=== PATIENT | female | born 2005 | race Caucasian/White ===

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

== ENCOUNTER 2023-06-15 09:27 | Emergency (ER) | payer OTHER ==
[~2023-06-15] VITALS: Ht 182.9 cm; Wt 129.8 kg
[~2023-06-15 09:27] MED LIST changes: +ALBU2.5V10 NEB; -ALBU83IN NEB
[2023-06-15] MEDS ORDERED: SERT-141 PO (11:43)
[2023-06-15 12:31] VITALS: BP 153/76; TEMP 96.5; O2SAT 98
== END 2023-06-15 12:33 | disposition home or self-care (01) ==
LOC: M ED 09:27
DX: T43.221A Poisoning by selective serotonin reuptake inhibitors, accidental (unintentional), initial encounter (principal); R11.2 Nausea with vomiting, unspecified; F41.9 Anxiety disorder, unspecified; Z79.899 Other long term (current) drug therapy

== ENCOUNTER 2023-07-04 15:16 | Emergency (ER) | payer OTHER ==
[~2023-07-04] VITALS: Ht 182.9 cm; Wt 128.2 kg
[~2023-07-04 15:16] MED LIST changes: +SERT-141 PO
[2023-07-04 17:12] LABS: URINE PREG TEST NEGATIVE (NEGATIVE)
[2023-07-04 17:44] LABS: BASO # 0.1 10^3/uL (0.0-0.2); BASO % 0.5 % (0.0-1.0); EOS # 0.1 10^3/uL (0.0-0.5); EOS % 1.2 % (0.0-3.0); HEMATOCRIT 32.9 % (36.0-47.0); LYMPH # 3.2 10^3/uL (1.5-5.0); LYMPH % 31.5 % (24.0-44.0); MEAN CORPUSCULAR HEMOGLOBIN 18.8 pg (27.0-33.0); MEAN CORPUSCULAR HGB CONC 30.4 g/dl (32.0-36.5); MEAN CORPUSCULAR VOLUME 61.7 fl (80.0-96.0); MONO # 0.6 10^3/uL (0.0-0.8); MONO % 5.7 % (2.0-8.0); NEUTROPHILS # 6.2 10^3/uL (1.5-8.5); NEUTROPHILS % 60.8 % (36.0-66.0); PLATELET COUNT, AUTOMATED 343 10^3/uL (150-450); RED BLOOD COUNT 5.33 10^6/uL (4.00-5.40); WHITE BLOOD COUNT 10.1 10^3/uL (4.0-10.0)
[2023-07-04 18:09] LABS: LIPASE 36 U/L (12-53)
[2023-07-04 18:11] LABS: ALBUMIN 3.8 G/DL (3.2-5.2); ALKALINE PHOSPHATASE 49 U/L (46-116); ALT/SGPT 19 U/L (7.0-40); AST/SGOT < 8 U/L (<34); BILIRUBIN,DIRECT 0.3 MG/DL (<0.4); BILIRUBIN,TOTAL 0.8 MG/DL (0.3-1.2); TOTAL PROTEIN 6.9 G/DL (5.7-8.2)
[2023-07-04] MEDS ORDERED: KETOROLAC 30 MG/ML 1ML VIAL IV ONE (18:15)
[2023-07-04] MEDS ORDERED: ONDANSETRON 4MG 2ML VIAL IV ONE (18:15)
[2023-07-04] MEDS ORDERED: ISOVUE-370 76% 100ML VIAL As Ordered ONE (18:21)
[2023-07-04] MEDS ORDERED: MIRA3350 PO (19:13)
[2023-07-04 19:21] VITALS: BP 139/81; TEMP 98; O2SAT 100
== END 2023-07-04 19:22 | disposition home or self-care (01) ==
LOC: M ED 15:16
DX: K59.00 Constipation, unspecified (principal); J45.909 Unspecified asthma, uncomplicated
CPT/HCPCS: 36415; 74177; 80047; 80076; 81001; 83690; 84703; 85025; 96374; 96375; 99284; J1885; J2405; Q9967